=== PATIENT | male | born 1975 | race African-American/Black ===

== ENCOUNTER → 2017-10-26 | Day surgery (SDC) | payer OTHER ==
[~2017-10-26] MED LIST: ARANESP60 MCG/0.3 IVP; BACITRACIN ZINC 15 GM OINT ONE; BUPIVACAINE 0.25% 30ML SDV INJ ONE; CEFEPIME-D1 GM/50 ML IV; DEXAMETHASONE SOD PHOS INJ 4 MG/ML VIAL ONE; DIOVAN160 MG PO; FENTANYL CITRATE/PF 100MCG/2 ML INJ ONE; FENTANYL1 EAC1 TOP; FLUCONAZOLE100 MG PO; HEPARIN SO5000 UNIT/ IV; HYDROMORPHONE HC2 MG PO; IOPAMIDOL 610MG/1ML 300 MG/ML VIAL IV ONE; LABETALOL HCL100 MG IV; LIDOCAINE HCL 2% LOCAL INJ 5 ML SDV VIAL INJ ONE; METOPROLOL TART50 MG PO; METRONIDAZOLE500 MG PO; MIDAZOLAM HCL 2 MG/2 ML VIAL ONE; MORPHINE S30 MG/30 M PO; NIFEDIPINE10 MG PO; NORCO 10-325 T1 EACH PO; NOVOLOG100 UNITS1; ONDANSETRON HCL INJ 2 MG/ML VIAL ONE; PREDNISONE20 MG PO; PROCEL1 EACH PO; PROPOFOL IV EMULSION 10 MG/ML 20 ML VIAL ONE; RENAGEL800 MG PO; SEVOFLURANE INHAL SOLN 250 ML PEN BTL ONE; SODIUM CHLORIDE 0.9% 500ML 500 ML ONE; SODIUM THI12.5 GM/50 IV; TOBRAMYCIN 40 MG/ML 2ML VIAL ONE; ZYVOX600 MG/300 IV
[2017-10-26 12:50] LABS: BASOPHILS # (AUTO) 0.1 (0.0-0.1); BASOPHILS % 0.6 % (0.0-1.0); EOSINOPHILS # (AUTO) 0.1 (0.0-0.4); EOSINOPHILS % 0.6 % (0.0-6.0); HEMATOCRIT 26.8 % (38.2-49.6); HEMOGLOBIN 8.7 g/dL (14.0-18.0); LYMPHOCYTES # (AUTO) 3.7 (1.0-3.2); LYMPHOCYTES % 15.7 % (18.0-39.1); MEAN CORPUSCULAR HEMOGLOBIN 29.1 pg (28-32); MEAN CORPUSCULAR HGB CONC 32.5 g/dL (31-35); MEAN CORPUSCULAR VOLUME 89.6 fL (81-99); MONOCYTES # (AUTO) 2.1 (0.2-0.8); NEUTROPHILS # (AUTO) 17.3 (2.1-6.9); NEUTROPHILS % 73.2 % (38.7-80.0); PLATELET COUNT 138 x10e3/uL (140-360); RED BLOOD COUNT 2.99 x10e6/uL (4.3-5.7)
[2017-10-26 13:02] LABS: INR 1.3; PARTIAL THROMBOPLASTIN TIME 31.7 seconds (23.8-35.5); PROTHROMBIN TIME 15.2 seconds (11.9-14.5)
[2017-10-26 13:09] LABS: ALBUMIN 2.9 g/dL (3.5-5.0); ALBUMIN/GLOBULIN RATIO 0.7 (0.8-2.0); ANION GAP 13.8 mmol/L (8-16); CALCIUM 8.7 mg/dL (8.4-10.2); CREATININE, SERUM 4.42 mg/dL (0.72-1.25); POTASSIUM 3.8 mmol/L (3.5-5.1)
[2017-10-26 15:13] LABS: EOSINOPHILS % (MANUAL) 1 % (0-7); HYPOCHROMASIA SLIGHT; LYMPHOCYTES % (MANUAL) 23 % (19-48); MONOCYTES % (MANUAL) 10 % (3.4-9.0); NEUTROPHILS % (MANUAL) 66 % (40-74); PLATELET ESTIMATE SLIGHTLY DECREASED; PLATELET MORPHOLOGY COMMENT NORMAL; RBC MORPHOLOGY COMMENT NORMAL
--- NOTE | 2017-10-27 08:29 | Operative Report ---
DATE OF PROCEDURE: October 26, 2017 SERVICE: Urology. PREOPERATIVE DIAGNOSES 1. Necrosis of the penis. 2. Necrosis of the distal urethra. 3. Renal failure. POSTOPERATIVE DIAGNOSES 1. Necrosis of the penis. 2. Necrosis of the distal urethra. 3. Renal failure. 4. Severe urethral stricture. OPERATIONS PERFORMED 1. Cystoscopy and dilation of the urethra. 2. Bilateral retrograde pyelograms under fluoroscopic control. 3. Excision of irregular penile skin and distal penectomy. 4. Plastic reconstruction and covering the defect of skin. [employer]: None. ANESTHESIA: General. 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 Continued to have necrosis and is being treated with local care as well as hyperbaric chamber. He is presently at the [facility]. Patient was brought for excision of the necrotic tissue and reconstruction of the penis as well as the distal urethra. Procedure was discussed with the patient. Potential benefit and complication discussed, explained, and accepted. DESCRIPTION OF PROCEDURE AND FINDINGS: After proper level of anesthesia was achieved, the patient was placed in lithotomy position, prepped and draped in sterile fashion. The distal necrotic skin of the foreskin was excised. The urethra was preserved. The distal part of it had to be removed due to necrosis. A distal penectomy was then done. The corpora cavernosa was closed using 2-0 Vicryl interrupted figure-of-8 sutures. The urethra was then spatulated ventrally. The penile skin that was preserved was rotated to cover the defect. An anastomosis was created between the spatulated urethra and the skin. The 3-0 chromic catgut interrupted sutures were used. transversely using a 2-0 Vicryl suture. At this point, a catheter was placed into the urethra; however, it was not possible to advance it due to a distal very tight stricture. The stricture was dilated gradually to 26-Macedonian. Following this, the scope was inserted. The bladder outlet appeared to be patent. Bladder contained large amount of residual urine that appeared to be quite cloudy. The bladder was irrigated to clear. Urine was sent for culture and sensitivity. Following this, a cone-tipped catheter was used and bilateral retrograde pyelograms were done, demonstrating a tiny collecting system on both sides. No obstruction, no hydronephrosis. Following this, a Ibarra catheter was placed after removing of the scope. At this point, reconstruction of the penis was continued. The skin in a dorsal area was anastomosed to the spatulated urethra using 3-0 interrupted chronic catgut sutures. The ventral part of the skin was approximated initially with a 3-0 Vicryl suture. The skin itself was approximated using vertical mattresses of 3-0 chromic catgut. Very proper anastomosis was created between the spatulated urethra and the skin. No active bleeding was observed. Iabrra catheter was kept in place. Bacitracin ointment was placed and Tegaderm and dressing were applied. This was covered with foam tape. Patient tolerated the procedure well and was transferred in satisfactory condition to recovery. He will be returning to [facility] for further treatment. Job#: [id number]
== END | disposition home or self-care (01) ==
LOC: OR 12:12
PROVIDERS: ATTEND Urology
DX: I96 Gangrene, not elsewhere classified (principal); N35.9 Urethral stricture, unspecified; E11.22 Type 2 diabetes mellitus with diabetic chronic kidney disease; I13.2 Hypertensive heart and chronic kidney disease with heart failure and with stage 5 chronic kidney disease, or end stage renal disease; I50.9 Heart failure, unspecified; N18.6 End stage renal disease; J45.909 Unspecified asthma, uncomplicated; I73.9 Peripheral vascular disease, unspecified; G89.29 Other chronic pain; N25.81 Secondary hyperparathyroidism of renal origin; Z79.4 Long term (current) use of insulin; Z99.2 Dependence on renal dialysis; Z87.891 Personal history of nicotine dependence
CPT/HCPCS: 36415; 52281; 54120; 74420; 80053; 82948; 85025; 85610; 85730; 87086; 88305; 93005; C1758; J1100; J2001; J2250; J2405; J3260; J7040; Q9967; 88304